=== PATIENT | male | born 1945 | race Caucasian/White ===

== ENCOUNTER 2019-01-19 10:36 | Emergency (ER) | payer MEDICARE, OTHER, SELFPAY ==
[2019-01-19 10:48] VITALS: BP 182/93; PULSE 93; RESP 13; TEMP 37.2; O2SAT 99; BMI 22.9
--- NOTE | 2019-01-19 10:56 | ED_ITS ---
HPI - Weakness General Chief complaint: Weakness Stated complaint: not able to walk well Time Seen by Provider: 01/19/19 10:46 Source: patient and family Mode of arrival: Wheelchair Limitations: no limitations History of Present Illness HPI Narrative: Patient is a 73-year-old male with history of trigeminal neuralgi a and bladder cancer presenting with left-sided weakness ongoing for the last 2 weeks. Patient states it started January 04 they walk every day however during that walk he started having left leg weakness. He was not evaluated at that time it has moved up into his left arm. He has significant weakness on the left side he feels like he might have some weakness on the right as well. However is unable to walk. His blood pressure has been noted to be elevated as well. No chest pain or fevers. He is treated for peripheral neuropathy with gabapentin in fact gabapentin was increased yesterday. MD Complaint: focal weakness (Left side) Onset (ago): week(s) (2) Duration: constant Location: LUE and LLE Related Data Previous Rx's Medication Instructions Recorded carbamazepine 300 mg PO TID #90 cap 11/16/15 lamotrigine [Lamictal] 100 mg PO BID #180 tab 10/02/16 Allergies Allergy/AdvReac Type Severity Reaction Status Date / Time No Known Allergies Allergy Uncoded 05/30/17 12:30 Review of Systems Review of Systems ROS Unobtainable: All systems reviewed & are unremarkable except as noted in HPI and below Constitutional Constitutional: Denies chills, Denies fever(s), Denies lethargy and Reports weakness Eyes Eyes: Denies change in vision, Denies eye discharge, Denies irritation and Denies loss of vision ENT Ears, Nose, Mouth, and Throat: Denies change in voice, Denies neck pain and Denies sore throat Cardiovascular Cardiovascular: Denies chest pain, Denies irregular heart rhythm, Denies lightheadedness, Denies palpitations, Denies dyspnea, Denies dyspnea on exertion and Denies orthopnea Respiratory Respiratory: Denies cough, Denies dyspnea, Denies dyspnea on exertion and Denies wheezing Gastrointestinal Gastrointestinal: Denies abdominal pain, Denies change in bowel habits, Denies diarrhea, Denies nausea and Denies vomiting Genitourinary Genitourinary: Reports as per HPI Musculoskeletal Musculoskeletal: Reports abnormal gait, Denies back pain, Denies neck pain, Reports numbness and Reports tingling Neurologic Neurologic: Reports as per HPI, Reports abnormal gait, Denies confusion, Reports lack of coordination, Reports focal weakness, Denies loss of vision, Reports numbness, Reports tingling, Reports paresthesias and Reports weakness Psychiatric Psychiatric: Denies confusion Endocrine Endocrine: Denies palpitations Allergic/Immunologic Allergic/Immunologic: Denies wheezing Patient History Medical History History of malignant neoplasm of bladder (05/25/14) History of malignant neoplasm of prostate (05/25/14) Left-sided trigeminal neuralgia (05/25/14) 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 RESPIRATORY: Breath sounds equal bilaterally, no wheezes rales or rhonchi. ABDOMEN: Soft, nontender. Normoactive bowel sounds all 4 quadrants. No guar ding or rebound. EXTREMITIES: Normal range of motion, no clubbing or edema. Neurovascularly intact NEUROLOGICAL: Alert and oriented x4. week left arm unable to do [id number] is eye drifts to bed but does not touch it. Left leg also dressed but does not touch bed good finger-nose with bright arm and leg actually able to do heel to ocampo bilaterally SKIN: Warm, dry, no laceration, no petechiae, no rashes or lesions. Scores NIH Stroke Scale Level of Conciousness: Alert, keenly responsive Ask month/age: Answers both questions correctly. Open/close eyes, close hand: Performs both tasks correctly Best gaze horizontal: Normal Visual adrian: No visual loss Facial palsy: Normal symetrical movement Left arm drift: Drifts down, not to bed Right arm drift: No drift for full 10 sec Left leg drift: Drifts down, not to bed Right leg drift: No drift for full 10 sec Limb ataxia: Absent Sensory on face/arms/legs: Normal, no sensory loss Best language: No aphasia, normal Dysarthria: Normal Extinction or inattention: No abnormality Total NIH Stroke scale score: 2 Course Orders Ordered: ED Orders 01/19/19 11:02 CT head/brain wo con Stat 01/19/19 11:03 XR chest 1V Stat 01/19/19 11:15 Complete Blood Count AUTO DIFF Stat Comprehensive Metabolic Panel Stat Lipase Stat Procalcitonin Stat Troponin & CK Cardiac Panel Stat 01/19/19 12:26 MR cervical spine wo con Stat MR stroke Stat 01/19/19 12:29 Carbamazepine Tegretol Level Stat Discontinued Medications Sodium Chloride (Normal Saline 0.9%) 1,000 mls @ 150 mls/hr IV CONT CINDY Last Infusion: 01/19/19 16:00 Dose: 0 mls/hr Documented by: Admin: 01/19/19 12:30 Dose: 150 mls/hr Documented by: CHRISTIANNE Consultations Time: 15:28 Vital Signs Vital signs: Vital Signs - 8 hr 01/19/19 10:48 01/19/19 12:00 01/19/19 12:02 Temperature 99 F Pulse Rate 93 H 87 Respiratory Rate 13 12 Blood Pressure 182/93 H Blood Pressure [Left Arm] 161/96 H Pulse Oximetry 99 99 01/19/19 14:55 01/19/19 15:32 Temperature Pulse Rate 89 91 H Respiratory Rate 16 16 Blood Pressure Blood Pressure [Left Arm] 141/94 H 136/93 H Pulse Oximetry 98 97 MDM - Weakness Lab Data Attestation: I reviewed the patient's lab results. Result diagrams: 01/19/19 11:15 01/19/19 11:15 Labs: Lab Results 01/19/19 01/19/19 01/19/19 Range/Units 11:15 11:15 11:15 WBC 10.7 (4.5-11.0) X10^3/uL RBC 4.45 L (4.5-5.9) X10^6/uL Hgb 14.5 (13.5-17.5) g/dL Hct 41.3 (41-53) % MCV 92.7 (80-100) fL MCH 32.5 (26-34) PG MCHC 35.0 (30-36) % RDW 13.1 (11.6-14.8) % Plt Count 349 (150-400) X10^3/uL Neut % (Auto) 69.2 (50-75) % Lymph % (Auto) 23.6 L (25-40) % [place] % (Auto) 5.5 (3-14) % Eos % (Auto) 1.3 L (2-4) % Baso % (Auto) 0.4 (0-2) % Neut # (Auto) 7400 H (0310-7498) /uL Lymph # (Auto) 2500 (3785-0104) /uL [place] # (Auto) 600 (0-900) /uL Eos # (Auto) 100 (0-450) /uL Baso # (Auto) 0 (0-100) /uL Sodium 132 L (137-145) mmol/L Potassium 4.1 (3.4-5.1) mmol/L Chloride 96 L (98-107) mmol/L Carbon Dioxide 28 (22-32) mmol/L BUN 14 (9-20) mg/dL Creatinine 0.60 L (0.66-1.25) mg/dL Estimated GFR > 60.0 (>60) mL/min BUN/Creatinine Ratio 23.3 H (6-22) Glucose 106 (80-110) mg/dL Calcium 9.1 (8.4-10.2) mg/dL Total Bilirubin 0.5 (0.2-1.3) mg/dL AST 39 (17-59) IU/L ALT 23 (<50) IU/L Alkaline Phosphatase 96 (38-126) U/L Total Creatine Kinase 343 H (55-170) U/L CK-MB (CK-2) 9.94 H (<2.37) ng/mL CK-MB (CK-2) Rel Index 2.9 (1.5-5.0) % Troponin I < 0.012 (0.01-0.034) ng/mL Total Protein 7.4 (6.3-8.2) g/dL Albumin 4.4 (3.5-5.0) g/dL Globulin 3.0 (1.7-4.1) g/dL Albumin/Globulin Ratio 1.5 (1.0-2.8) Lipase 148 (23-300) U/L Procalcitonin < 0.05 (<0.5) ng/mL Urine Dip Bedside Urine Glucose Negative Bedside Urine Bilirubin - Negative Bedside Urine Ketone +/- 5 Urine Specific [place] 1.010 Bedside Urine Occult Blood - Negative Bedside Urine pH 7.0 Bedside Urine Protein - Negative Bedside Urine Urobilinogen - Negative Bedside Urine Nitrite - Negative Bedside Urine Leukocytes - Negative Esterase Imaging Data CT scan - head: Radiologist's impression: PROCEDURE: CT HEAD/BRAIN WO CON INDICATIONS: left sided weakness x 2 weeks TECHNIQUE: Noncontrast 4.5 mm thick angled axial sections acquired from the foramen magnum to the vertex, with coronal and sagittal reformats. For radiation dose reduction, the following was used: automated exposure control, adjustment of mA and/or kV according to patient size. COMPARISON: None. FINDINGS: Image quality: Excellent. CSF spaces: Basal cisterns are patent. No extra-axial fluid collections. The ventricles are symmetric in size and shape. Brain: No intracranial bleeds or masses. There is cerebral volume loss for age, with resultant ventricular and sulcal prominence. There are periventricular and deep white matter chronic small vessel ischemic changes. There is intracranial internal carotid artery atherosclerosis. Skull and face: Calvarium and visualized facial bones appear intact, without suspicious lesions. Sinuses: Visualized sinuses and mastoids are clear. IMPRESSION: 1. No acute intracranial findings. Dictated by: Doris Alfaro M.D. on 01/19/2019 at 10:39 Approved by: Doris Alfaro M.D. on 01/19/2019 at 10:42 Chest x-ray: Radiologist's impression: PROCEDURE: XR CHEST 1V INDICATIONS: weakness TECHNIQUE: One view of the chest was acquired. COMPARISON: None. FINDINGS: Surgical changes and devices: None. Lungs and pleura: Patchy pulmonary opacities are present in the left apex. The lungs are otherwise clear. No pleural effusion or pneumothorax. Mediastinum: Mediastinal contours appear normal. Heart size is normal. Bones and chest wall: No suspicious bony lesions. Overlying soft tissues appear unremarkable. IMPRESSION: Left apical pulmonary radiopacities. Differential considerations include acute air space opacities or pulmonary scar. Short interval followup is recommended with resolution of the patient's symptoms to ensure there is no underlying pulmonary pathology. Dictated by: Doris Alfaro M.D. on 01/19/2019 at 10:42 MRI - head: Radiologist's impression: PROCEDURE: MR STROKE Pre- and post-contrast brain MRI, non-contrast brain MR angiogram, pre- and postcontrast neck MR angiogram INDICATIONS: weakness left side TECHNIQUE: Brain: Noncontrast axial T1 spin echo, axial T2 fast spin echo, sagittal and axial FLAIR, coronal T2 fast spin echo, axial gradient echo, axial diffusion and ADC through the brain. After the administration of contrast, axial 3D VIBE of the cranial vasculature and brain. Brain MRA: Non-contrast 3-D time of flight MR angiogram, with multiple hpfmubv-ujnzfedxf-binrhxvblo (MIP) reformats performed. Neck MRA: Axial and sagittal TruFISP through the neck. Coronal dynamic MR angiogram during administration of contrast in the arterial and venous phases, with 3- dimenstional phspvmu-yondmciap-ftlpuyuibk (MIP) reformats constructed from subtraction images. COMPARISON: None. FINDINGS: Image quality: Patient motion artifact limits evaluation. BRAIN: CSF spaces: Ventricles are normal in size and shape. Basal cisterns are patent. No extra-axial fluid collections. Brain: No intracranial bleeds or mass effects. Gann-white matter interface is normal. Diffusion weighted images show no acute ischemic insults. Scattered T2/AND flair signal hyperintense foci are present within the deep and periventricular white matter suggesting chronic microvascular ischemic changes. Brainstem appears normal. Normal intravascular flow voids are present. No abnormal intracranial enhancement. Skull and face: Calvarial marrow signal is normal. Orbits appear normal. Sinuses: Sinuses and mastoids are clear. BRAIN MR ANGIOGRAM: Anterior circulation: Intracranial internal carotid arteries are normal in overall size and enhancement. There is likely a moderate grade stenosis within the cavernous portion of the right internal carotid artery which is poorly characterized given motion artifact. The flow within the paired anterior cerebral arteries is normal and symmetric. The flow within the middle cerebral arteries is normal and symmetric. The anterior communicating artery is seen. No stenoses, occlusions, or aneurysms. Posterior circulation: The visualized portions of the vertebral arteries demonstrate normal caliber, and join to form a normal appearing basilar artery. The flow within the posterior cerebral arteries is normal and symmetric. No stenoses, occlusions, or aneurysms. NECK MR ANGIOGRAM: Carotids: Great vessels demonstrate a conventional anatomy as they arise from the aortic arch. The origins of the common carotid arteries appear patent. The calibers and courses of both common carotid arteries are normal. The bifurcation regions appear normal bilaterally. Mild stenoses are present at the origins of the bilateral internal carotid arteries. The more superior portions of the bilateral cervical internal carotid arteries demonstrate normal course and caliber. Posterior circulation: The origin of the right vertebral artery is not well characterized and a stenosis cannot be excluded. The origin of the left vertebral artery is widely patent. More superior portions of both vertebral arteries demonstrate normal course and caliber, and join to form a normal appearing basilar artery. The left vertebral artery is dominant. Miscellaneous: Subclavian arteries appear patent. Pre-contrast images through the neck show no soft tissue abnormalities. IMPRESSION: Limited study given patient motion artifact. BRAIN MRI: 1. No acute intracranial findings. Specifically, no increased restricted diffusion to suggest acute infarct. 2. Findings likely associated with mild chronic microvascular ischemic change. BRAIN MR ANGIOGRAM: 1. Moderate grade stenosis within the cavernous portion of the right internal carotid artery. NECK MR ANGIOGRAM: 1. Poor visualization at the origin of the right vertebral artery. High-grade stenosis cannot be excluded. 2. Mild stenosis at the origin of the bilateral internal carotid arteries. Dictated by: Doris Alfaro M.D. on 01/19/2019 at 13:36 MR cervical: Radiologist's impression: PROCEDURE: MR CERVICAL SPINE WO CON INDICATIONS: weakness left side TECHNIQUE: Noncontrast sagittal T1 spin echo and T2 fast spin echo, sagittal STIR, foraminal oblique sagittal T2 fast spin echo, and axial gradient echo or T2 fast spin echo through the cervical spine. COMPARISON: None. FINDINGS: Image quality: Motion artifact somewhat limits evaluation. Alignment and Curvature: There is normal bony alignment. Bone Marrow: Marrow demonstrates normal overall signal. Spinal Cord: Severe canal stenosis is present at C3-4 with severe narrowing of the cord and focal increased cord signal suggesting myelomalacia. Moderate stenosis is present at C3-4 and C5-6. Paraspinous Soft Tissues: No paravertebral masses. Prevertebral soft tissues are normal in thickness. C2-C3: Broad-based disc bulge. Mild right foraminal stenosis. No left foraminal narrowing. No canal stenosis. C3-C4: Moderate disc desiccation and height loss. Broad-based disc bulge. Severe canal stenosis with deformity of the cord and increased cord signal. Severe bilateral neural foraminal stenosis. C4-C5: Broad-based disc bulge. Moderate canal stenosis. Severe bilateral neuroforaminal stenosis. C5-C6: Broad-based disc bulge. Mild effacement of the anterior CSF space with moderate canal stenosis. No flattening of the cord or cord signal abnormality. Moderate to severe bilateral foraminal narrowing. C6-C7: Mild disc desiccation and height loss. Broad-based disc bulge. Effacement of the anterior CSF space. No cord deformity or cord signal abnormality. No canal stenosis. Moderate to severe bilateral foraminal narrowing. C7-T1: Normal appearance. IMPRESSION: 1. Limited study given patient motion artifact. 2. Severe canal stenosis at C3-4 with resultant severe narrowing of the cord and cord signal abnormality suggesting myelomalacia. 2. Moderate canal stenosis at C4-5 and C5-6 without deformity of the cord or cord signal abnormality. 3. Moderate to severe bilateral neuroforaminal narrowing at C3-4, C4-5, C5-6, and C6-7. Dictated by: Doris Alfaro M.D. on 01/19/2019 at 12:57 ECG Data Attestation: I personally reviewed and interpreted this ECG as follows: Prior ECG tracings: not available for review Interpretation: Normal sinus rhythm rate [address] elevation no T-wave inversions no priors to compare Q-wave is noted in inferior leads nonpathologic Q-waves is likely old MDM Narrative Medical decision making narrative: Patient presented with left-sided weakness only. Concern for possible stroke from 2 weeks ago. Initial head CT was negative. MRI of head and neck were also negative no evidence of stroke. I discussed case with Neurology at [facility]. MRI of the C-spine does actually show severe spinal stenosis C3 and C4 which he says can cause weakness 1 side. After again speaking with the family they state that he intermittently has s trength and is able to walk. They would like to go home. This time his symptoms have been ongoing for 2 weeks not acute they are trying to get into a neurologist they have been referred to [place] by their PCP. Discharge Plan Departure Patient Disposition: Home Clinical Impression: Cervical spinal stenosis Discharge Date/Time: 01/19/19 16:08 Instructions: DI for Spinal Stenosis Activity Restrictions/Additional Instructions: *You have been diagnosed with cervical spine stenosis C3 and C4 along with C4-C5 and C5-C6 *What to do: MRI today did not show stroke, still recommend follow-up with Neurology *Continue to take medications as directed *Follow up with your primary care provider in 2-3 days *Return to ER if you should have increasing weakness fevers or any new, worsening or concerning symptoms Prescriptions: No Action carbamazepine 300 MG capsule, ER multiphase 12 hr 300 mg PO TID Qty: 90 RF: 11 lamotrigine [Lamictal] 100 MG tablet 100 mg PO BID Qty: 180 RF: 2 Referrals: Kenrick Garza MD [Primary Care Provider] -
--- NOTE | 2019-01-19 11:02 | DI.CT.S_ITS ---
PROCEDURE: CT HEAD/BRAIN WO CON INDICATIONS: left sided weakness x 2 weeks TECHNIQUE: Noncontrast 4.5 mm thick angled axial sections acquired from the foramen magnum to the vertex, with coronal and sagittal reformats. For radiation dose reduction, the following was used: automated exposure control, adjustment of mA and/or kV according to patient size. COMPARISON: None. FINDINGS: Image quality: Excellent. CSF spaces: Basal cisterns are patent. No extra-axial fluid collections. The ventricles are symmetric in size and shape. Brain: No intracranial bleeds or masses. There is cerebral volume loss for age, with resultant ventricular and sulcal prominence. There are periventricular and deep white matter chronic small vessel ischemic changes. There is intracranial internal carotid artery atherosclerosis. Skull and face: Calvarium and visualized facial bones appear intact, without suspicious lesions. Sinuses: Visualized sinuses and mastoids are clear. IMPRESSION: 1. No acute intracranial findings. Dictated by: Doris Alfaro M.D. on 01/19/2019 at 10:39 Approved by: Doris Alfaro M.D. on 01/19/2019 at 10:42
--- NOTE | 2019-01-19 11:03 | DI.RAD.S_ITS ---
PROCEDURE: XR CHEST 1V INDICATIONS: weakness TECHNIQUE: One view of the chest was acquired. COMPARISON: None. FINDINGS: Surgical changes and devices: None. Lungs and pleura: Patchy pulmonary opacities are present in the left apex. The lungs are otherwise clear. No pleural effusion or pneumothorax. Mediastinum: Mediastinal contours appear normal. Heart size is normal. Bones and chest wall: No suspicious bony lesions. Overlying soft tissues appear unremarkable. IMPRESSION: Left apical pulmonary radiopacities. Differential considerations include acute air space opacities or pulmonary scar. Short interval followup is recommended with resolution of the patient's symptoms to ensure there is no underlying pulmonary pathology. Dictated by: Doris Alfaro M.D. on 01/19/2019 at 10:42 Approved by: Doris Alfaro M.D. on 01/19/2019 at 11:08
[2019-01-19 11:23] LABS: Add Manual Diff / Slide Review NO; Basophils Absolute Auto 0 /uL (0-100); Basophils Percent Auto 0.4 % (0-2); Eosinophils Absolute Auto 100 /uL (0-450); Eosinophils Percent Auto 1.3 % (2-4); Hematocrit 41.3 % (41-53); Hemoglobin 14.5 g/dL (13.5-17.5); Lymphocytes Absolute Auto 2500 /uL (1100-4500); Lymphocytes Percent Auto 23.6 % (25-40); Mean Corpuscular Hemoglobin 32.5 PG (26-34); Mean Corpuscular Volume 92.7 fL (80-100); Monocytes Absolute Auto 600 /uL (0-900); Monocytes Percent Auto 5.5 % (3-14); Neutrophils Absolute Auto 7400 /uL (1500-7000); Neutrophils Percent Auto 69.2 % (50-75); Platelet Count 349 X10^3/uL (150-400); Red Blood Cell Count 4.45 X10^6/uL (4.5-5.9); Red Cell Distribution Width 13.1 % (11.6-14.8); White Blood Cell Count 10.7 X10^3/uL (4.5-11.0)
[2019-01-19 11:35] LABS: Alanine Aminotransferase 23 IU/L (<50); Albumin 4.4 g/dL (3.5-5.0); Albumin Globulin Ratio 1.5 (1.0-2.8); Alkaline Phosphatase 96 U/L (38-126); Aspartate Aminotransferase 39 IU/L (17-59); BUN Creatinine Ratio 23.3 (6-22); Bilirubin Total 0.5 mg/dL (0.2-1.3); Blood Urea Nitrogen 14 mg/dL (9-20); Calcium 9.1 mg/dL (8.4-10.2); Carbon Dioxide 28 mmol/L (22-32); Chloride 96 mmol/L (98-107); Creatine Kinase 343 U/L (55-170); Estimated Glomerular Filt Rate > 60.0 mL/min (>60); Glucose 106 mg/dL (80-110); HEMOLYSIS < 15 (0-50); Lipase 148 U/L (23-300); Potassium 4.1 mmol/L (3.4-5.1); Sodium 132 mmol/L (137-145); Total Protein 7.4 g/dL (6.3-8.2)
[2019-01-19 11:47] LABS: Troponin I < 0.012 ng/mL (0.01-0.034)
[2019-01-19 11:50] LABS: CKMB % Relative Index 2.9 % (1.5-5.0); Creatine Kinase MB 9.94 ng/mL (<2.37); Procalcitonin < 0.05 ng/mL (<0.5)
[2019-01-19 12:00] VITALS: BP 161/96; PULSE 87; O2SAT 99
[2019-01-19 12:02] VITALS: RESP 12
--- NOTE | 2019-01-19 12:26 | DI.MRI.S_ITS ---
PROCEDURE: MR CERVICAL SPINE WO CON INDICATIONS: weakness left side TECHNIQUE: Noncontrast sagittal T1 spin echo and T2 fast spin echo, sagittal STIR, foraminal oblique sagittal T2 fast spin echo, and axial gradient echo or T2 fast spin echo through the cervical spine. COMPARISON: None. FINDINGS: Image quality: Motion artifact somewhat limits evaluation. Alignment and Curvature: There is normal bony alignment. Bone Marrow: Marrow demonstrates normal overall signal. Spinal Cord: Severe canal stenosis is present at C3-4 with severe narrowing of the cord and focal increased cord signal suggesting myelomalacia. Moderate stenosis is present at C3-4 and C5-6. Paraspinous Soft Tissues: No paravertebral masses. Prevertebral soft tissues are normal in thickness. C2-C3: Broad-based disc bulge. Mild right foraminal stenosis. No left foraminal narrowing. No canal stenosis. C3-C4: Moderate disc desiccation and height loss. Broad-based disc bulge. Severe canal stenosis with deformity of the cord and increased cord signal. Severe bilateral neural foraminal stenosis. C4-C5: Broad-based disc bulge. Moderate canal stenosis. Severe bilateral neuroforaminal stenosis. C5-C6: Broad-based disc bulge. Mild effacement of the anterior CSF space with moderate canal stenosis. No flattening of the cord or cord signal abnormality. Moderate to severe bilateral foraminal narrowing. C6-C7: Mild disc desiccation and height loss. Broad-based disc bulge. Effacement of the anterior CSF space. No cord deformity or cord signal abnormality. No canal stenosis. Moderate to severe bilateral foraminal narrowing. C7-T1: Normal appearance. IMPRESSION: 1. Limited study given patient motion artifact. 2. Severe canal stenosis at C3-4 with resultant severe narrowing of the cord and cord signal abnormality suggesting myelomalacia. 2. Moderate canal stenosis at C4-5 and C5-6 without deformity of the cord or cord signal abnormality. 3. Moderate to severe bilateral neuroforaminal narrowing at C3-4, C4-5, C5-6, and C6-7. Dictated by: Doris Alfaro M.D. on 01/19/2019 at 12:57 Approved by: Doris Alfaro M.D. on 01/19/2019 at 13:02
--- NOTE | 2019-01-19 12:26 | DI.MRI.S_ITS ---
PROCEDURE: MR STROKE Pre- and post-contrast brain MRI, non-contrast brain MR angiogram, pre- and postcontrast neck MR angiogram INDICATIONS: weakness left side TECHNIQUE: Brain: Noncontrast axial T1 spin echo, axial T2 fast spin echo, sagittal and axial FLAIR, coronal T2 fast spin echo, axial gradient echo, axial diffusion and ADC through the brain. After the administration of contrast, axial 3D VIBE of the cranial vasculature and brain. Brain MRA: Non-contrast 3-D time of flight MR angiogram, with multiple wcanadk-rynkzlvbq-fbmxrctwpg (MIP) reformats performed. Neck MRA: Axial and sagittal TruFISP through the neck. Coronal dynamic MR angiogram during administration of contrast in the arterial and venous phases, with 3-dimenstional dbfqlod-szhnleloy-iswxcbbzih (MIP) reformats constructed from subtraction images. COMPARISON: None. FINDINGS: Image quality: Patient motion artifact limits evaluation. BRAIN: CSF spaces: Ventricles are normal in size and shape. Basal cisterns are patent. No extra-axial fluid collections. Brain: No intracranial bleeds or mass effects. Gann-white matter interface is normal. Diffusion weighted images show no acute ischemic insults. Scattered T2/AND flair signal hyperintense foci are present within the deep and periventricular white matter suggesting chronic microvascular ischemic changes. Brainstem appears normal. Normal intravascular flow voids are present. No abnormal intracranial enhancement. Skull and face: Calvarial marrow signal is normal. Orbits appear normal. Sinuses: Sinuses and mastoids are clear. BRAIN MR ANGIOGRAM: Anterior circulation: Intracranial internal carotid arteries are normal in overall size and enhancement. There is likely a moderate grade stenosis within the cavernous portion of the right internal carotid artery which is poorly characterized given motion artifact. The flow within the paired anterior cerebral arteries is normal and symmetric. The flow within the middle cerebral arteries is normal and symmetric. The anterior communicating artery is seen. No stenoses, occlusions, or aneurysms. Posterior circulation: The visualized portions of the vertebral arteries demonstrate normal caliber, and join to form a normal appearing basilar artery. The flow within the posterior cerebral arteries is normal and symmetric. No stenoses, occlusions, or aneurysms. NECK MR ANGIOGRAM: Carotids: Great vessels demonstrate a conventional anatomy as they arise from the aortic arch. The origins of the common carotid arteries appear patent. The calibers and courses of both common carotid arteries are normal. The bifurcation regions appear normal bilaterally. Mild stenoses are present at the origins of the bilateral internal carotid arteries. The more superior portions of the bilateral cervical internal carotid arteries demonstrate normal course and caliber. Posterior circulation: The origin of the right vertebral artery is not well characterized and a stenosis cannot be excluded. The origin of the left vertebral artery is widely patent. More superior portions of both vertebral arteries demonstrate normal course and caliber, and join to form a normal appearing basilar artery. The left vertebral artery is dominant. Miscellaneous: Subclavian arteries appear patent. Pre-contrast images through the neck show no soft tissue abnormalities. IMPRESSION: Limited study given patient motion artifact. BRAIN MRI: 1. No acute intracranial findings. Specifically, no increased restricted diffusion to suggest acute infarct. 2. Findings likely associated with mild chronic microvascular ischemic change. BRAIN MR ANGIOGRAM: 1. Moderate grade stenosis within the cavernous portion of the right internal carotid artery. NECK MR ANGIOGRAM: 1. Poor visualization at the origin of the right vertebral artery. High-grade stenosis cannot be excluded. 2. Mild stenosis at the origin of the bilateral internal carotid arteries. Dictated by: Doris Alfaro M.D. on 01/19/2019 at 13:36 Approved by: Doris Alfaro M.D. on 01/19/2019 at 13:43
[2019-01-19] MEDS: SODIUM CHLORIDE 0.9% 1,000 ML 150 ML IV (12:30)
[2019-01-19 14:55] VITALS: BP 141/94; PULSE 89; RESP 16; O2SAT 98
[2019-01-19 15:32] VITALS: BP 136/93; PULSE 91; RESP 16; O2SAT 97
[2019-01-23 13:50] LABS: Carbamazepine Tegretol Level 6.6 mg/L (4.0-12.0)
== END 2019-01-19 16:08 | disposition home or self-care (01) ==
PROVIDERS: Emergency Provider Emergency Medicine; PCP Family Medicine
DX: M48.02 Spinal stenosis, cervical region (principal); R53.1 Weakness
CPT/HCPCS: 36415; 70450; 70548; 70553; 71045; 72141; 80053; 80156; 81003; 82550; 82553; 83690; 84145; 84484; 85025; 93005; 99283; 99285